=== PATIENT | male | born 1985 | race Caucasian/White ===

== ENCOUNTER 2023-02-04 11:15 | Outpatient (CLI) | payer MEDICAID, SELFPAY | END 2023-02-04 11:16 | disposition home or self-care (01) | PROVIDERS: PCP Physician Assistant Medical; Visit Provider Physician Assistant Medical | DX: I10 Essential (primary) hypertension (principal); F98.8 Other specified behavioral and emotional disorders with onset usually occurring in childhood and adolescence | CPT/HCPCS: 80053; 84443 ==

== ENCOUNTER 2023-08-31 08:13 | Outpatient (CLI) | payer OTHER, SELFPAY | END 2023-08-31 08:14 | disposition home or self-care (01) | PROVIDERS: PCP Physician Assistant Medical; Visit Provider Physician Assistant Medical | DX: I10 Essential (primary) hypertension (principal); F98.8 Other specified behavioral and emotional disorders with onset usually occurring in childhood and adolescence | CPT/HCPCS: 80053; 80061; 80306; 84443 ==

== ENCOUNTER 2025-01-23 08:32 | Outpatient (CLI) | payer OTHER, SELFPAY | END 2025-01-23 08:33 | disposition home or self-care (01) | LOC: NFLDREF 01-26 18:51 | PROVIDERS: PCP Physician Assistant Medical; Referring Provider Physician Assistant Medical; Visit Provider Physician Assistant Medical | DX: I10 Essential (primary) hypertension (principal); F98.8 Other specified behavioral and emotional disorders with onset usually occurring in childhood and adolescence | CPT/HCPCS: 80053; 80061; 84439; 84443 ==